=== PATIENT | female | born 1990 | race Caucasian/White ===

== ENCOUNTER 2025-07-11 04:08 | Inpatient (IN) | payer BC, SELFPAY ==
[2025-07-11] VITALS (25 sets, daily range): BP systolic 119–167; BP diastolic 72–97; PULSE 69–103; RESP 16–25; TEMP 36.5–36.8; O2SAT 97–98; BMI 35.2
[2025-07-11] MEDS: AMPICILLIN 2 GM in 0.9 % SODIUM CHLORIDE Mini-bag 100 ML IVPB (04:37)
[2025-07-11 04:45] LABS: Hematocrit 38.3 % (33.0-51.0); Hemoglobin* 13.2 gm/dL (12.0-16.0); Immature Granulocytes Pct Auto 0.4 %; Mean Corpuscular HGB Conc 35 gm/dL (32-36); Mean Corpuscular Hemoglobin 31 pg (26-34); Mean Corpuscular Volume 91 fL (80-100); RDW Coefficient of Variation % 12.7 % (11.5-15.5); Red Blood Count 4.23 m/uL (4.00-5.20); White Blood Count* 11.48 K/uL (4.50-11.00)
[2025-07-11 04:48] LABS: Immature Granulocytes Abs Auto 0.00 K/uL (0.00-0.30); Lymphocytes Absolute Auto 1.70 K/uL (0.90-2.90); Slide Review Reflex No
[2025-07-11 05:25] LABS: Alanine Aminotransferase* 10 U/L (4-35); Aspartate Amino Transferase* 24 U/L (12-35); Blood Urea Nitrogen* 12 mg/dL (5-24); Creatinine* 0.6 mg/dL (0.5-1.5); Est. Creatinine Clearance* 120.00; Estimated Glomerular Filt Rate 121 ml/min
--- NOTE | 2025-07-11 05:32 | PM.OBHPLI ---
OB - H&P: HPI Labor/Induction History of Present Illness Date Seen: 07/11/25 Chief Complaint: The patient is a 35 year old 2 para 1 at 39+6 weeks gestation by 1st trimester US, who presents with painful regular contractions. Chief complaint: Maternity : 2 Para: 1 Narrative: Zonia Leach is a 35 year old at 39+6 weeks by 1st trimester US who present with painful, regular contractions. She started chuck yesterday at 2000, but was able to fall asleep for several hours, waking around 0300 with more intense contractions. On arrival to L&D was noted to be 5/60/-1 per RN and having contractions every 3 minutes. has been uncomplicated other than slightly elevated BP readings the last 2 visits, but not meeting criteria for gHTN. Her BPs on arrival continue to be elevated upper 130s-140/80-90s. She denies headache, vision changes, swelling or RUQ/epigastric pain. History of Present Dating criteria: based on 1st trimester US only care: good care Ultrasounds: normal 1st trimester US and normal mid trimester US Labs Blood type: O (+) positive Rubella: immune RPR/VDLR: nonreactive GBS status: positive HBsAG: negative Review of Systems Status of ROS: Reports: 6 or more systems reviewed and unremarkable except as noted in History and below Meds Home Medications and Allergies Home Medications ?Medication ?Instructions ?Recorded ?Confirmed ?Type vit no.95-ferrous 1 tab PO DAILY 07/11/25 07/11/25 History fumarate 28 mg-folic acid 800 mcg tablet () Allergies Allergy/AdvReac Type Severity Reaction Status Date / Time No Known Drug Allergies Allergy Verified 07/11/25 03:49 OB - H&P: Exam Physical Exam: Vital signs: Temp Pulse Resp BP 98 F 81 18 140/83 H 07/11/25 05:09 07/11/25 05:25 07/11/25 05:07/11/25 05:25 Constitutional: Constitutional: no acute distress Routine HEENT Exam: Head: Present atraumatic Eye: Present EOMI and normal appearance ENT: Present mucous membranes moist Routine Neck Exam: Neck: Present full ROM Routine Respiratory Exam: Respiratory: Present CTA bilaterally Routine Cardiovascular Exam: Cardiovascular: RRR Detailed Labor and Delivery Exam: Patient Gravid: yes Dilation (cm): 5 Effacement (%): 60 Contraction frequency (min): 3 Contraction intensity: Strong/Firm Fetus (Single): Station: -1 Amniotic Membrane Status: intact Heart Rate Baseline: 140 Monitor Accelerations: Present Monitor Decelerations: None Workforce Development Specialist Variability: Moderate (6-25) Routine Extremities Exam: Comments: no swelling Routine Skin Exam: Comments: psoriatic plaques around ears, umbilicus Routine Neurological Exam: Present alert and oriented X3 Routine Psychiatric Exam: Present normal affect and normal thought process OB - Results Labs Labs: Short CBC 07/11/25 Range/Units 04:37 WBC 11.48 H (4.50-11.00) K/uL Hgb 13.2 (12.0-16.0) gm/dL Hct 38.3 (33.0-51.0) % Plt Count 207 (140-440) K/uL BMP 07/11/25 04:27 BUN 12 Creatinine 0.6 Liver Function 07/11/25 Range/Units 04:27 AST 24 (12-35) U/L ALT 10 (4-35) U/L OB - Problem Based A/P Additional Plan (1) Active labor at term: Status: Acute (2) Term : Status: Acute Plan 1. Active labor at term, expectant management. Patient is planning on a water at this time. 2. Elevated BP readings, likely gHTN (but readings not yet 4 hours apart) with normal labs. Continue to monitor closely. Delivery/Labor/Induction Plan Plan: expectant management
[2025-07-11 06:10] LABS: Protein Creatinine Ratio Urine 0.15 (0-0.19)
--- NOTE | 2025-07-11 08:18 | W.PM.VAGDEL1 ---
Procedure Delivery date: 07/11/25 Procedure Done: Global Events: Gestational Hypertension Delivery monitor: external FHT and external uterine Route of delivery: Laceration description: Perineal - 2nd Degree Estimated blood loss (mL): 350 Anesthesia type: None Disposition: floor Narrative: The patient is a 35 year-old admitted on 07/11/2025 at 39 Weeks, 6 Days gestation for active labor.? Cervical exam on admission was 5 cm/60 % effaced/-1 station with membranes intact in vertex presentation.? Contractions were every 3 minutes.? heart rate demonstrated baseline 140 bpm with moderate variability, + accelerations, - decelerations; a category 1 tracing. Patient developed gHTN during labor. Preeclampsia labs were negative. Patient entered the tub for a planned water around 0700.? SROM occurred at 0731 (with delivery of head) with clear fluid. ? Labor Analgesia:? none ? Pitocin:? yes, IM ? Labor onset:? 0336 ? Complete:? 0715 ? Pushing:? 0715 ? heart tones during second stage were category 1, based on auscultation, FHTs were not tracing. ? At 0731 a viable male infant delivered in vertex OA presentation over intact perineum via spontaneous vaginal delivery.? was placed on maternal abdomen.? Cord was clamped and cut after a 30-60 second delay.? Nose and mouth were bulb suctioned.? weight 3960.? 9 at 1 minute and 9 at 5 minutes.? Shoulder dystocia: no.? Nuchal cord: no. ? Placenta delivered spontaneously and complete at 0743 with a 3 vessel cord. ? Mother and infant were stable after delivery. ? Lacerations:? 2nd degree, repaired with 3-0 vicryl suture. ? Blood loss: 350 mL. Blood loss measurement type: QBL ? Sponge and needles counts are correct. Infant Gender: Male presentation: vertex Placental Delivery Description: Spontaneous Cord Description: 3 Vessels
[2025-07-11] MEDS: LABETALOL HCL 5 MG/ML inj IVP (08:47)
[2025-07-11] MEDS: IBUPROFEN 600 MG TABLET PO ×2 (08:48→18:57)
[2025-07-11] MEDS: MAGNESIUM IV 4 GM/100 ML PIGGYBACK IVPB (08:49)
[2025-07-11] MEDS: LACTATED RINGERS 1000 ML 1,000 ML 75 ML IV ×2 (08:50→22:30)
[2025-07-11] MEDS: MAGNESIUM Infusion 40 GM/1,000 ML IV.SOLN IVPB (09:29)
[2025-07-11 21:13] LABS: Hematocrit 33.8 % (33.0-51.0); Hemoglobin* 11.4 gm/dL (12.0-16.0); Mean Corpuscular HGB Conc 34 gm/dL (32-36); Mean Corpuscular Hemoglobin 31 pg (26-34); Mean Corpuscular Volume 92 fL (80-100); Red Blood Count 3.69 m/uL (4.00-5.20); White Blood Count* 10.13 K/uL (4.50-11.00)
[2025-07-11 21:16] LABS: Slide Review Reflex No
[2025-07-11 21:28] LABS: Alanine Aminotransferase* 10 U/L (4-35); Aspartate Amino Transferase* 25 U/L (12-35); Blood Urea Nitrogen* 11 mg/dL (5-24); Creatinine* 0.8 mg/dL (0.5-1.5); Est. Creatinine Clearance* 90.00; Estimated Glomerular Filt Rate 100 ml/min
[2025-07-11 21:30] LABS: INR 0.93 (0.91-1.10); Prothrombin Time 13.3 Seconds
[2025-07-12] VITALS (8 sets, daily range): BP systolic 114–138; BP diastolic 71–83; PULSE 75–89; RESP 16–18; TEMP 36.5–36.8; O2SAT 96–98
[2025-07-12 03:16] LABS: Hematocrit 32.3 % (33.0-51.0); Hemoglobin* 11.0 gm/dL (12.0-16.0); Mean Corpuscular HGB Conc 34 gm/dL (32-36); Mean Corpuscular Hemoglobin 31 pg (26-34); Mean Corpuscular Volume 92 fL (80-100); Red Blood Count 3.52 m/uL (4.00-5.20); White Blood Count* 10.49 K/uL (4.50-11.00)
[2025-07-12 03:26] LABS: Slide Review Reflex No
[2025-07-12 03:31] LABS: Alanine Aminotransferase* 12 U/L (4-35); Aspartate Amino Transferase* 27 U/L (12-35); Blood Urea Nitrogen* 11 mg/dL (5-24); Creatinine* 0.7 mg/dL (0.5-1.5); Est. Creatinine Clearance* 102.86; Estimated Glomerular Filt Rate 117 ml/min
[2025-07-12 03:35] LABS: INR 0.94 (0.91-1.10); Prothrombin Time 13.3 Seconds
[2025-07-12] MEDS: MAGNESIUM Infusion 40 GM/1,000 ML IV.SOLN IVPB (04:39)
[2025-07-12 09:14] LABS: Hematocrit 34.1 % (33.0-51.0); Hemoglobin* 11.5 gm/dL (12.0-16.0); Mean Corpuscular HGB Conc 34 gm/dL (32-36); Mean Corpuscular Hemoglobin 31 pg (26-34); Mean Corpuscular Volume 92 fL (80-100); Red Blood Count 3.69 m/uL (4.00-5.20); White Blood Count* 9.58 K/uL (4.50-11.00)
[2025-07-12 09:16] LABS: Slide Review Reflex No
[2025-07-12 09:35] LABS: Alanine Aminotransferase* 11 U/L (4-35); Aspartate Amino Transferase* 28 U/L (12-35); Creatinine* 0.7 mg/dL (0.5-1.5); Est. Creatinine Clearance* 102.86; Estimated Glomerular Filt Rate 117 ml/min
--- NOTE | 2025-07-12 10:01 | PM.OBCN1 ---
OB - CN: HPI Date of Consult Time Seen by Provider: 10:01 Date Seen: 07/12/25 Consult date: 07/12/25 Requesting Physician: Jennifer Sanchez MD Primary Care Provider: Jennifer Sanchez MD Consult Narrative Reason for consult: gestational hypertension (with severe features) Narrative: The patient is a 35 year old G 2 P 2001 at 39 6/7 weeks gestation that was admitted to the Center on 07/11/25 for delivery. Patient had a water yesterday morning that was uncomplicated. In the immediate recovery period, patient noted to have persistently severely elevated blood pressures that required IV antihypertensive therapy x1. Patient was started on magnesium sulfate infusion for seizure prophylaxis reason for OB consult. Patient is currently status post 24 hours of magnesium infusion therapy completed this morning at around 9:00 a.m. 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 History of Present Dating criteria: based on LMP care: good care Ultrasounds: normal 1st trimester US and normal mid trimester US History History 2 Elective abortions Para 1 Spontaneous abortions Hx # Term Pregnancies Ectopic pregnancies Hx # Pregnancies Multiple births Number of Living Children 1 Labs Blood type: O (+) positive Rubella: immune RPR/VDLR: nonreactive GBS status: positive HBsAG: negative OB Labs: Lab Assessment Start: 07/11/25 04:00 Freq: ONCE Status: Complete Protocol: PC.OBGBS Activity Type Activity Date Activity User E-sign Co-sign Detail Recorded Client Recorded Date Recorded By Document 07/11/25 04:38 VÍCTOR No Response 07/11/25 04:42 [facility] 07/11/25 04:38 Lab Assessment GBS Status negative GBS Additional Criteria None No Treatment Needed OK Are Labs Available Yes Maternal Blood Type O Maternal RH Factor Positive Evaluate Maternal Rubella Immune Status Immune Hepatitis B Surface Antigen Negative Maternal HIV Status Negative Maternal Syphillis (RPR) Status Negative Review of Systems Status of ROS: Reports: 6 or more systems reviewed and unremarkable except as noted in History and below [facility] Medical History (Updated 07/12/25 @ 10:05 by Lissy Kessler MD) Psoriasis ?L40.9 - Psoriasis, unspecified (ICD-10) Social History What is your current living situation?: I presently have a place to live Problems where you live: no known problems In the past 12 months, utilities in danger of being shut off: no In past 12 months, lack of transportation kept you from medical appts, meetings, work, or getting things needed for daily living: no In the past 12 mos, have been you worried that your food would run out before you had money to buy more?: never true In the past 12 mos, the food you bought just didn't last and you didn't have money to buy more?: never true Smoking Status: Never smoker How often does anyone, including family, friends and others, physically hurt you: never How often does anyone, including family, friends and others, insult or talk down to you: never How often does anyone, including family, friends and others, threaten you with harm: never How often does anyone, including family, friends and others, scream or curse at you: never Meds Home Medications and Allergies Home Medications ?Medication ?Instructions ?Recorded ?Confirmed ?Type vit no.95-ferrous 1 tab PO DAILY 07/11/25 07/11/25 History fumarate 28 mg-folic acid 800 mcg tablet () Allergies Allergy/AdvReac Type Severity Reaction Status Date / Time No Known Drug Allergies Allergy Verified 07/11/25 03:49 OB - H&P: Exam Physical Exam: Vital signs: Temp Pulse Resp BP Pulse Ox O2 Del Method 97.7 F 80 16 117/74 96 Room Air 07/12/25 07:56 07/12/25 07:56 07/12/25 07:56 07/12/25 07:56 07/12/25 07:56 07/12/25 07:56 Narrative: GENERAL APPEARANCE:? normal affect, alert, no distress MOOD:? appropriate CHEST:? clear to auscultation bilaterally. HEART:? regular rate and rhythm w/o significant murmurs. ABDOMEN:? soft, non tender. Well contracted uterus. EXTREMITIES:? normal and trace edema OB - Results Labs Labs: Short CBC 07/11/25 07/12/25 07/12/25 Range/Units 21:06 03:05 09:05 WBC 10.13 10.49 9.58 (4.50-11.00) K/uL Hgb 11.4 L 11.0 L 11.5 L (12.0-16.0) gm/dL Hct 33.8 32.3 L 34.1 (33.0-51.0) % Plt Count 209 179 189 (140-440) K/uL BMP 07/11/25 07/12/25 07/12/25 21:06 03:05 09:05 BUN 11 11 Creatinine 0.8 0.7 0.7 Liver Function 07/11/25 07/12/25 07/12/25 Range/Units 21:06 03:05 09:05 AST 25 27 28 (12-35) U/L ALT 10 12 11 (4-35) U/L OB - CN: A/P Assessment and Plan (1) Gestational hypertension: Problem details: with severe features Status: Acute Assessment and Plan: Gestational hypertension with severe features due to blood pressure criteria. Patient currently has completed 24 hours of magnesium infusion sulfate post delivery for seizure prophylaxis. Blood pressures have remained normal. Lab work has also remained normal. Normal physical exam. Recommend continued observation and patient for at least 24 hours after discontinuation of magnesium infusion for continued blood pressure monitoring and start of oral antihypertensive medication if persistently mild elevated blood pressures. Recommend continued monitoring of blood pressures at home at least twice a day and to give clear guidelines at discharge for patient to notify clinic with blood pressure concerns or ADULT SCHOOL COUNSELOR irritability symptoms. Recommend a short-term follow-up in the clinic after 3-5 days of discharge for blood pressure recheck. (2) Active labor at term: Status: Acute (3) Term : Status: Acute Plan Continue current management, re consult OB if needed.
--- NOTE | 2025-07-12 10:22 | P.OBPN_ITS ---
OB - PN:Subj Subjective Date Seen: 07/12/25 Interval history: PPD 1 from vaginal delivery, water , complicated by development of pre- eclampsia with severe features based on blood pressures. Magnesium is now off. Mom reports feeling well. No headaches, vision changes, RUQ pain, or swelling. Cramping with . OB - PN: Obj Exam Physical Exam: Vital signs: Temp Pulse Resp BP Pulse Ox O2 Del Method 97.7 F 80 16 117/74 96 Room Air 07/12/25 07:56 07/12/25 07:56 07/12/25 07:56 07/12/25 07:56 07/12/25 07:56 07/12/25 07:56 Narrative: Gen: alert, pleasant, NAD Resp: breathing comfortably on room air, CTA b/l CV: RRR, no murmurs Abd: no RUQ tenderness to palpation; fundus firm Extremities, no LE edema OB - PN: Obj Data Labs Labs: Laboratory Results - last 24 hr 07/11/25 07/12/25 07/12/25 21:06 03:05 09:05 WBC 10.13 10.49 9.58 RBC 3.69 L 3.52 L 3.69 L Hgb 11.4 L 11.0 L 11.5 L Hct 33.8 32.3 L 34.1 MCV 92 92 92 MCH 31 31 31 MCHC 34 34 34 Plt Count 209 179 189 INR 0.93 0.94 APTT 28 29 Fibrinogen 494 H 450 BUN 11 11 Creatinine 0.8 0.7 0.7 Estimated Creat Clear 90.00 102.86 102.86 Estimated GFR 100 117 117 Uric Acid 4.6 4.7 AST 25 27 28 ALT 10 12 11 OB - PN: A/P Delivery Assessment and Plan (1) Gestational hypertension: Problem details: with severe features Status: Acute Assessment and Plan: OB consulted, see note from Dr. Martin for further details. Magnesium off. Plan for 24 hours of BP monitoring. Low threshold to initiate PO antihypertensives if pressures increase. Anticipate discharge home on 07/13 with close follow up in clinic. (2) Active labor at term: Status: Acute (3) Term : Status: Acute Plan day: 1
[2025-07-12 15:10] LABS: Hematocrit 33.3 % (33.0-51.0); Hemoglobin* 11.3 gm/dL (12.0-16.0); Mean Corpuscular HGB Conc 34 gm/dL (32-36); Mean Corpuscular Hemoglobin 32 pg (26-34); Mean Corpuscular Volume 93 fL (80-100); Red Blood Count 3.58 m/uL (4.00-5.20); White Blood Count* 10.33 K/uL (4.50-11.00)
[2025-07-12 15:12] LABS: Slide Review Reflex No
[2025-07-12 15:26] LABS: Alanine Aminotransferase* 12 U/L (4-35); Aspartate Amino Transferase* 27 U/L (12-35); Creatinine* 0.7 mg/dL (0.5-1.5); Est. Creatinine Clearance* 102.86; Estimated Glomerular Filt Rate 117 ml/min
[2025-07-12] MEDS: IBUPROFEN 600 MG TABLET PO (22:13)
[2025-07-13 01:24] VITALS: BP 115/72; PULSE 81; RESP 16
[2025-07-13 05:50] VITALS: BP 120/77; PULSE 78; RESP 16; O2SAT 97
[2025-07-13 08:00] VITALS: BP 118/78; PULSE 83; RESP 16; TEMP 36.9; O2SAT 97
[2025-07-13] MEDS: DOCUSATE SODIUM 100 MG CAPSULE PO (08:22)
[2025-07-13] MEDS: IBUPROFEN 600 MG TABLET PO (08:22)
--- NOTE | 2025-07-13 13:51 | PM.OBDSVD1 ---
DS: Providers Provider Time Seen by Provider: 08:00 Date Seen: 07/13/25 Date of admission: 07/11/25 04:08 Primary care physician: Jennifer Sanchez MD Admitting Clinician: Jennifer Sanchez MD Consults: MAILROOM ASSOCIATE, Dr. Betts Attending Physician on discharge: Jennifer Sanchez MD Date of Discharge: 07/13/25 DS: Diagnosis Discharge Diagnosis (1) Pre-eclampsia, severe, delivered with condition: Status: Acute (2) Active labor at term: Status: Acute (3) Term : Status: Acute Exam Narrative: Exam Narrative: General appearance: Well-appearing adult female. Alert, oriented and appropriate. Sitting up in hospital bed. HEENT: EOMI, no conjunctival injection or discharge. MMM. Neck: Supple. CV: RRR, no rubs, murmurs or extra heart sounds. Pulm: CTAB, no wheezes, rales or rhonchi. Abdomen: Soft, non-tender. Fundus palpated 2 cm below the umbilicus. MSK: Moving all extremities. Ext: Warm and well-perfused. No LE edema. Skin: No rashes appreciated over exposed skin. Neuro: Grossly normal strength and sensation. No focal deficits. Patellar reflexes are 1+ on R, could not be elicited on L. Psych: Normal affect. Const: Vital Signs, click to edit/add: Vital Signs - 24 hr 07/12/25 16:28 07/12/25 20:05 07/12/25 22:13 Temperature 97.8 F 98.2 F Pulse Rate [Pulse Oximeter] 85 75 Respiratory Rate 16 16 Blood Pressure [Le ft Arm] 135/78 138/81 135/77 Pulse Oximetry 97 97 Oxygen Delivery Me thod Room Air Room Air 07/13/25 01:24 07/13/25 05:50 07/13/25 08:00 Temperature 98.4 F Pulse Rate [Pulse Oximeter] 81 78 83 Respiratory Rate 16 16 16 Blood Pressure [Le ft Arm] 115/72 120/77 118/78 Pulse Oximetry 97 97 Oxygen Delivery Me thod Room Air Room Air OB - DS: Summary Hospital Course Hospital Course: The patient is a 35 year old G 3 P 2012 at 39+6 weeks gestation that was admitted to the Center on 07/11/25 for active labor. She had an uncomplicated vaginal delivery, waterbirth. She delivered a viable male infant. Post- course was complicated by pre-eclampsia with severe features for blood pressure criteria. She was asymptomatic and labs remained WNL. She received IV magnesium x 24 hours for seizure prophyalxis. Blood pressures initially improved with magnesium. She was started on oral nifedipine on the evening of 07/12 for borderline blood pressures. Hospital stay was otherwise unremarkable. She is bottle feeding. Instructed to check blood pressures twice daily at home after discharge. She will be sent with a blood pressure cuff. Follow-up with Dr. Sanchez on 07/16/25 for blood pressure check. Peripartum Data delivery method: Vaginal Laceration description: Perineal - 2nd Degree Infant Gender: Male Discharge Plan: Home Status at Discharge Functional status at discharge: independent ambulation Overall status at discharge: patient is progressing back to baseline Time Spent with Patient Time attestation: Total time spent providing and/or coordinating discharge services: Time spent: Greater than 30 minutes Discharge Plan Discharge Disposition: Home, Self-Care Date of Admission: 07/11/25 04:08 Attending Provider on Discharge: Eloise Whitley Consulting Providers: Lissy Kessler Primary Care Provider: Jennifer Sanchez Condition: Stable Anticipated Discharge Date/Time: 07/13/25 08:45 Discharge Medications: New acetaminophen 500 mg Tablet 1,000 mg PO Q6H PRN (Reason: pain/fever) Qty: 30 0RF docusate sodium 100 mg Capsule 100 mg PO DAILY Qty: 30 0RF nifedipine 30 mg Tablet Extended Release 30 mg PO DAILY Qty: 30 0RF ibuprofen 600 mg Tablet 600 mg PO Q6H PRNQty: 30 0RF Continued PNV no.95-ferrous fumarate-FA [] 28 mg iron- 800 mcg tablet 1 tab PO DAILY Discharge Orders: Discharge Order (Routine); Ordered 07/13/25 Ordered By: Eloise Whitley Patient Education: Preeclampsia and Eclampsia After Delivery (GEN), Vaginal Delivery (GEN), OB Vaginal/Bottle Feeding, OB Vaginal/Breast Feeding Additional Instructions: Follow-up with Dr. Sanchez as scheduled on 07/16/25 for blood pressure check. Bring record of home blood pressures along to the visit. Activity Level: Activity as Tolerated Discharge Diet: Regular Follow Up Appointments: Jennifer Sanchez MD [Primary Care Provider, Family Practice] Forms: Patient Belongings, MyHealth Info Instructions
== END 2025-07-13 10:05 | disposition home or self-care (01) | DRG 560 ==
LOC: OB OUT 04:09 → OB 04:09
PROVIDERS: Family Medicine; Admitting Provider Family Medicine; PCP Family Medicine; Visit Provider Family Medicine
DX: O13.4 Gestational [pregnancy-induced] hypertension without significant proteinuria, complicating childbirth (principal); O14.15 Severe pre-eclampsia, complicating the puerperium; O70.1 Second degree perineal laceration during delivery; Z3A.39 39 weeks gestation of pregnancy; Z37.0 Single live birth
CPT/HCPCS: 36415; 82565; 82570; 84156; 84450; 84460; 84520; 84550; 85025; 85027; 85384; 85610; 85730; 86592; 86850; 86900; 86901; 88307; A9270; J0290; J2590; J3475; J7120